=== PATIENT | female | born 1940 | race Two or more races ===

== ENCOUNTER → 2021-06-25 11:33 | Outpatient (CLI) | payer OTHER | END | disposition home or self-care (01) | LOC: LAB 11:33 | PROVIDERS: ATTEND Urology | DX: N39.0 Urinary tract infection, site not specified (principal); N32.1 Vesicointestinal fistula; B96.29 Other Escherichia coli [E. coli] as the cause of diseases classified elsewhere ==

== ENCOUNTER 2021-07-31 05:16 | Day surgery (SDC) | payer OTHER ==
[~2021-07-31 05:16] MED LIST: HUMULIN 70100 UNIT/2 SUBCUTANEO; IRBESARTAN75 MG PO; TOPROL XL50 M1 PO
== END 2021-07-31 14:05 | disposition home or self-care (01) ==
LOC: CIR.AMB 05:16
PROVIDERS: ATTEND Urology
DX: N13.5 Crossing vessel and stricture of ureter without hydronephrosis (principal)

== ENCOUNTER 2022-01-04 19:27 | Inpatient (IN) | payer OTHER ==
[~2022-01-04] VITALS: Ht 157.5 cm; Wt 74.4 kg
[2022-01-04] MEDS ORDERED: CHILDREN'S ASPI81 MG PO (19:32)
--- NOTE | 2022-01-04 19:34 | NUR ---
SE RECIBE PACIENTE EN AMBULANCIA ALERTA Y ORIENTADA X3. LA MISMA VIENE DE [facility] DEL [facility] EN ARECIBO EN COMPANIA DE FAMILIAR. REFIEREN QUE LLEVA CON SANGRADO VAGINAL HACE DOS PAVON Y VERBALIZA "PICAZON EN EL AREA" SE MONITOREAN S/V, SE LE REALIZA DXT Y PARAMEDICO UBICAN PACIENTE EN KIM #[id number]. PACIENTE PREVIAMENTE CANALIZADA EN EL HOSPITAL CON ANGIO # 20 LA.
--- NOTE | 2022-01-04 20:27 | NUR ---
PACIENTE EVALUDO POR DRA GAGNON QUIEN [place] MED[facility], MR SEARS LE ORIENTA A PACIENTE SOBRE EL MISMO Y REFIERE ENTENDER. LE COLECTA MUESTRAS DE LABORATORIO BAJO MEDIDAS ASEPTICAS. PENDIENTE ESTUDIO DE SONO.
--- NOTE | 2022-01-04 21:12 | NUR ---
PACIENTE PENDIENTE DE CONSULTA CON SURGERY.
[2022-01-23] MEDS ORDERED: LEVSIN/SL0.125 MG SL (17:51)
[2022-01-23] MEDS ORDERED: PERCOCET 5-3251 EACH PO (17:51)
== END 2022-01-24 07:31 | DRG 329 ==
LOC: ER 19:27 → SURH 23:27
PROVIDERS: ADMIT Surgery; ATTEND Surgery
PROC: 30233N1 Transfusion of Nonautologous Red Blood Cells into Peripheral Vein, Percutaneous Approach (ICD-10-PCS; 2022-01-05)
PROC: 02HV33Z Insertion of Infusion Device into Superior Vena Cava, Percutaneous Approach (ICD-10-PCS; 2022-01-06)
PROC: 3E0436Z Introduction of Nutritional Substance into Central Vein, Percutaneous Approach (ICD-10-PCS; 2022-01-06)
PROC: 0W9F30Z Drainage of Abdominal Wall with Drainage Device, Percutaneous Approach (ICD-10-PCS; 2022-01-07)
PROC: BT43ZZZ Ultrasonography of Bilateral Kidneys (ICD-10-PCS; 2022-01-10)
PROC: BW21YZZ Computerized Tomography (CT Scan) of Abdomen and Pelvis using Other Contrast (ICD-10-PCS; 2022-01-11)
PROC: 8E0ZXY6 Isolation (ICD-10-PCS; 2022-01-12)
PROC: B246ZZZ Ultrasonography of Right and Left Heart (ICD-10-PCS; 2022-01-14)
PROC: 3E0F7SF Introduction of Other Gas into Respiratory Tract, Via Natural or Artificial Opening (ICD-10-PCS; 2022-01-16)
PROC: 0D1B4Z4 Bypass Ileum to Cutaneous, Percutaneous Endoscopic Approach (ICD-10-PCS; principal; 2022-01-16 12:45)
DX: K57.21 Diverticulitis of large intestine with perforation and abscess with bleeding (principal); K65.1 Peritoneal abscess; N32.1 Vesicointestinal fistula; N13.6 Pyonephrosis; B37.89 Other sites of candidiasis; E87.1 Hypo-osmolality and hyponatremia; N17.8 Other acute kidney failure; D50.0 Iron deficiency anemia secondary to blood loss (chronic); N30.91 Cystitis, unspecified with hematuria; B96.20 Unspecified Escherichia coli [E. coli] as the cause of diseases classified elsewhere; B95.2 Enterococcus as the cause of diseases classified elsewhere; E11.22 Type 2 diabetes mellitus with diabetic chronic kidney disease; I12.9 Hypertensive chronic kidney disease with stage 1 through stage 4 chronic kidney disease, or unspecified chronic kidney disease; N18.9 Chronic kidney disease, unspecified; E66.09 Other obesity due to excess calories; Z79.4 Long term (current) use of insulin; Z68.30 Body mass index [BMI] 30.0-30.9, adult

== ENCOUNTER 2022-03-12 06:13 | Emergency (ER) | payer OTHER ==
[~2022-03-12] VITALS: Ht 157.5 cm; Wt 59.0 kg
[~2022-03-12 06:13] MED LIST changes: +CHILDREN'S ASPI81 MG PO; +LEVSIN/SL0.125 MG SL; +PERCOCET 5-3251 EACH PO
[2022-03-12] MEDS ORDERED: BACTRIM 400-801 EACH PO (12:57)
[2022-03-12] MEDS ORDERED: UTIX PO (12:57)
[2022-03-12] MEDS ORDERED: METRONIDAZOLE500 MG PO (12:57)
== END 2022-03-12 13:39 ==
LOC: ER 06:13
DX: N39.0 Urinary tract infection, site not specified (principal); N32.1 Vesicointestinal fistula; I10 Essential (primary) hypertension; Z85.9 Personal history of malignant neoplasm, unspecified; E11.9 Type 2 diabetes mellitus without complications; Z79.4 Long term (current) use of insulin; Z91.018 Allergy to other foods

== ENCOUNTER 2022-05-01 19:06 | Inpatient (IN) | payer OTHER ==
[~2022-05-01] VITALS: Ht 157.5 cm; Wt 59.0 kg
[~2022-05-01 19:06] MED LIST changes: +BACTRIM 400-801 EACH PO; +METRONIDAZOLE500 MG PO; +UTIX PO
[2022-05-25] MEDS ORDERED: [UNRECOGNIZED DRUG - OTHER] IH (13:28)
[2022-05-25] MEDS ORDERED: Lantus 1000 UNITS/10 SUBCUTANEO (13:28)
[2022-05-25] MEDS ORDERED: LEVSIN/SL0.125 MG SL (13:28)
== END 2022-05-25 15:04 | disposition home or self-care (01) | DRG 871 ==
LOC: ER 19:06 → SURH 05-02 14:26 → SEC-K 05-02 14:26 → MEDI 05-02 14:26 → SURH 05-02 14:32 → MEDJ 05-09 12:52 → MEDI 05-13 16:21
PROVIDERS: ADMIT Surgery; ATTEND Surgery
PROC: 02HV33Z Insertion of Infusion Device into Superior Vena Cava, Percutaneous Approach (ICD-10-PCS; 2022-05-03)
PROC: 30233N1 Transfusion of Nonautologous Red Blood Cells into Peripheral Vein, Percutaneous Approach (ICD-10-PCS; 2022-05-04)
PROC: 4A12X4Z Monitoring of Cardiac Electrical Activity, External Approach (ICD-10-PCS; 2022-05-08)
PROC: B24BZZZ Ultrasonography of Heart with Aorta (ICD-10-PCS; principal; 2022-05-09)
PROC: XW033E5 Introduction of Remdesivir Anti-infective into Peripheral Vein, Percutaneous Approach, New Technology Group 5 (ICD-10-PCS; 2022-05-09)
PROC: 8E0ZXY6 Isolation (ICD-10-PCS; 2022-05-09)
PROC: BW11YZZ Fluoroscopy of Abdomen and Pelvis using Other Contrast (ICD-10-PCS; 2022-05-12)
PROC: 0T2BX0Z Change Drainage Device in Bladder, External Approach (ICD-10-PCS; 2022-05-12)
PROC: 0T2BX0Z Change Drainage Device in Bladder, External Approach (ICD-10-PCS; 2022-05-22)
DX: A41.9 Sepsis, unspecified organism (principal); K65.1 Peritoneal abscess; U07.1 COVID-19; K57.20 Diverticulitis of large intestine with perforation and abscess without bleeding; N32.1 Vesicointestinal fistula; N39.0 Urinary tract infection, site not specified; I50.20 Unspecified systolic (congestive) heart failure; N13.39 Other hydronephrosis; I13.0 Hypertensive heart and chronic kidney disease with heart failure and stage 1 through stage 4 chronic kidney disease, or unspecified chronic kidney disease; D64.9 Anemia, unspecified; R09.02 Hypoxemia; E87.5 Hyperkalemia; B96.20 Unspecified Escherichia coli [E. coli] as the cause of diseases classified elsewhere; B96.7 Clostridium perfringens [C. perfringens] as the cause of diseases classified elsewhere; B96.1 Klebsiella pneumoniae [K. pneumoniae] as the cause of diseases classified elsewhere; B96.5 Pseudomonas (aeruginosa) (mallei) (pseudomallei) as the cause of diseases classified elsewhere; B96.89 Other specified bacterial agents as the cause of diseases classified elsewhere; Z20.822 Contact with and (suspected) exposure to COVID-19; Z74.01 Bed confinement status; Z93.2 Ileostomy status; E11.22 Type 2 diabetes mellitus with diabetic chronic kidney disease; N18.9 Chronic kidney disease, unspecified